=== PATIENT | male | born 1980 ===

== ENCOUNTER → 2023-05-30 | Outpatient (REF) | payer OTHER ==
[2023-05-30 15:10] LABS: SEMEN APPEARANCE OPAQUE (OPAQUE); SEMEN VISCOSITY LIQUID (LIQUID)
[2023-05-30 15:11] LABS: SPERM CONCENTRATION 73.3 M/ml (>=15.0); WBC CONCENTRATION <=1 M/ml (<=1 M/ml)
== END ==
LOC: M LAB REF 14:14
PROVIDERS: ATTEND Obstetrics & Gynecology
DX: N46.8 Other male infertility (principal)